=== PATIENT | female | born 2000 | race African-American/Black ===

== ENCOUNTER 2020-05-03 00:19 | Inpatient (IN) ==
[2020-05-03] MEDS ORDERED: ONDANSETRON 4 MG/2 ML VIAL IV PRN ×2 (00:30→20:33)
[2020-05-03] MEDS ORDERED: LACTATED RINGERS 1,000 ML IV ONE (00:30)
[2020-05-03 00:59] LABS: Basophils % 0.1 % (0.0-0.8); Eosinophils # 0.2 10*3/uL (0.0-0.87); Eosinophils % 1.4 % (0.00-10.9); Hematocrit 34.4 VOL% (35.7-47.0); Hemoglobin 11.8 GM/DL (12.0-16.0); Immature Granulocytes % 0.8 %; Immature Granulocytes Absolute 0.11 #; Lymphocytes # 2.6 10*3/uL (1.4-4.0); Lymphocytes % 19.3 % (21.3-54.2); Mean Corpuscular HGB Conc 34.3 GM/DL (32-36); Mean Corpuscular Volume 90.5 FL (87-102); Mean Platelet Volume 11.6 FL (9.6-12.0); Monocytes % 8.6 % (1.7-12.7); Neutrophils % 69.8 % (38.7-73.9); Platelet Count 255 T/CUMM (130-400); Red Cell Distribution Width 12.5 % (9.3-17.3); White Blood Count 13.3 T/CUMM (4-12)
[2020-05-03 01:31] LABS: Albumin 3.2 G/DL (3.4-5.0); Bilirubin,Total 0.5 MG/DL (0.2-1.0); Calcium 9.1 MG/DL (8.5-10.1); Osmolality,Calculated 264.2 MOS/KG (273-304); Potassium 3.6 MMOL/L (3.5-5.1); Total Protein 7.9 G/DL (6.4-8.3)
[2020-05-03 02:27] LABS: Rubella Antibody IgG Result Reactive (NonReactive)
[2020-05-03 02:39] LABS: Hepatitis B Surface Ag Quant < 0.10 Index; Hepatitis B Surface Ag Result Non-Reactive (NonReactive)
[2020-05-03] MEDS: MEPERIDINE 50 MG/1 ML VIAL IV PRN ×2 (06:21→09:14)
[2020-05-03] MEDS ORDERED: ONDANSETRON 4 MG/2 ML VIAL IV ONE (06:52)
[2020-05-03] MEDS ORDERED: CITRIC ACID/SODIUM CITRATE 30 ML UDCUP PO ONE (06:52)
[2020-05-03] MEDS ORDERED: FAMOTIDINE 20 MG/2 ML VIAL IV ONE (06:52)
[2020-05-03] MEDS ORDERED: diphenhydrAMINE 50 MG/1 ML VIAL IV PRN ×2 (06:52)
[2020-05-03] MEDS ORDERED: ePHEDrine 50 MG/ML VIAL IV PRN (06:52)
[2020-05-03] MEDS ORDERED: hydrOXYzine HCL 25 MG/1 ML VIAL IM PRN (06:52)
[2020-05-03] MEDS ORDERED: NALOXONE 0.4 MG/ML VIAL IV PRN (06:52)
[2020-05-03] MEDS ORDERED: PROMETHAZINE 25 MG/1 ML VIAL IM ONE (06:52)
[2020-05-03] MEDS ORDERED: fentaNYL 2 MCG/ROPIV 0.2% EPID 100 ML EPIDURAL SCH (07:00)
[2020-05-03] MEDS ORDERED: OXYTOCIN/LR 20 UNIT/1,000 ML BAG IV SCH (10:00)
[2020-05-03] MEDS: LACTATED RINGERS 1,000 ML IV SCH ×2 (10:44→10:45)
[2020-05-03 13:30] LABS: Amorphous Crystals,Urine Occasional /HPF (Few); Bacteria,Urine Occasional /HPF (Few); Bilirubin,Urine Negative (Negative); Blood, Urine Small mg/dL (Negative); Glucose,Urine (UA) Negative (Negative); Ketones,Urine 80 mg/dL (Negative); Mucus,Urine Few /LPF (Occasional); Nitrite,Urine Negative (Negative); Protein,Urine Negative; RBC,Urine 30 /HPF (0-4); Squamous Epithelial Cell,Urine Occasional /HPF (0-10); Urine Appearance CLEAR (Clear); Urine Color Yellow (Yellow); Urine Specific Gravity 1.016 (1.001-1.035); WBC,Urine 2 /HPF (0-6)
[2020-05-03] MEDS ORDERED: OXYTOCIN 10 UNIT/ML VIAL IM ONE (19:35)
[2020-05-03] MEDS ORDERED: OXYTOCIN 10 UNIT/ML VIAL ONE (19:35)
[2020-05-03] MEDS ORDERED: OXYTOCIN/LR 30 UNIT/1,000 ML BAG IV ONE (19:38)
[2020-05-03] MEDS ORDERED: miSOPROStoL 200 MCG TABLET ONE (19:47)
[2020-05-03] MEDS ORDERED: TRANEXAMIC ACID 1,000 MG/10 ML VIAL ONE (19:48)
[2020-05-03] MEDS ORDERED: CARBOPROST TROMETHAMINE 250 MCG/ML AMP IM ONE (19:48)
[2020-05-03] MEDS ORDERED: METHYLERGONOVINE 0.2 MG/1 ML AMP ONE (19:48)
[2020-05-03] MEDS ORDERED: OXYTOCIN/LR 20 UNIT/1,000 ML BAG IV ONE ×2 (19:48→20:33)
[2020-05-03] MEDS ORDERED: ceFAZolin 2,000 MG in PREMIX 1 EACH IV ONE (20:00)
[2020-05-03] MEDS ORDERED: MAGNESIUM HYDROXIDE SUSP 30 ML UDCUP PO PRN (20:33)
[2020-05-03] MEDS ORDERED: ACETAMINOPHEN 325 MG TABLET PO PRN (20:33)
[2020-05-03] MEDS ORDERED: SIMETHICONE CHEW 80 MG TABLET PO PRN (20:33)
[2020-05-03] MEDS ORDERED: RHO(D) IMMUNE GLOBULIN 300 MCG SYRINGE IM ONE (20:33)
[2020-05-03 20:39] LABS: Cord Venous Blood HCO3 20.3 MMOL/L; Cord Venous Blood PCO2 44.4 MMHG; Cord Venous Blood PO2 19.2
[2020-05-03 20:43] LABS: Cord Arterial Blood HCO3 20.4 MMOL/L
[2020-05-03 20:44] LABS: Bilirubin,Urine Negative (Negative); Blood, Urine Large mg/dL (Negative); Glucose,Urine (UA) Negative (Negative); Ketones,Urine 80 mg/dL (Negative); Mucus,Urine Moderate /LPF (Occasional); Nitrite,Urine Negative (Negative); Protein,Urine >=500 MG/DL; RBC,Urine 3627 /HPF (0-4); Squamous Epithelial Cell,Urine Occasional /HPF (0-10); Urine Appearance Slightly Hazy (Clear); Urine Color Red (Yellow); Urine Specific Gravity 1.012 (1.001-1.035); Urine Urobilinogen < 2.0 EU/DL (0.2-1.0); WBC,Urine 88 /HPF (0-6)
[2020-05-03] MEDS ORDERED: LACTATED RINGERS 1,000 ML IV SCH (21:00)
[2020-05-04] MEDS: IBUPROFEN 800 MG TABLET PO PRN ×2 (00:16→20:14)
[2020-05-04] MEDS: KETOROLAC 30 MG/1 ML VIAL IV SCH ×4 (05:14→22:37)
[2020-05-04] MEDS: ACETAMINOPHEN 500 MG TABLET PO SCH ×4 (05:14→22:38)
[2020-05-04 06:12] LABS: Basophils # 0.1 10*3/uL (0.0-0.2); Basophils % 0.2 % (0.0-0.8); Hematocrit 28.2 VOL% (35.7-47.0); Hemoglobin 9.3 GM/DL (12.0-16.0); Immature Granulocytes % 0.7 %; Immature Granulocytes Absolute 0.19 #; Lymphocytes # 0.8 10*3/uL (1.4-4.0); Lymphocytes % 2.8 % (21.3-54.2); Mean Corpuscular Volume 93.7 FL (87-102); Mean Platelet Volume 11.4 FL (9.6-12.0); Monocytes % 4.8 % (1.7-12.7); Neutrophils % 91.5 % (38.7-73.9); Platelet Count 198 T/CUMM (130-400); Red Blood Count 3.01 MC/CUMM (3.8-5.5); Red Cell Distribution Width 12.6 % (9.3-17.3); White Blood Count 27.6 T/CUMM (4-12)
[2020-05-04 06:54] LABS: Band Neutrophils 4 % (0-10); Lymphocytes 3 % (20-55); Segmented Neutrophils 88 % (50-85); Total Cells Counted 100
[2020-05-04 06:55] LABS: Hypochromasia 1+; Microcytosis 1+; Platelet Estimate Adequate
[2020-05-04] MEDS: DOCUSATE SODIUM 100 MG CAPSULE PO SCH ×3 (09:43→20:14)
[2020-05-04] MEDS: MULTIVITAMIN (PRENATAL) TABLET PO SCH (09:43)
[2020-05-04] MEDS: METOCLOPRAMIDE 10 MG TABLET PO SCH ×2 (13:20→20:14)
[2020-05-05] MEDS: METOCLOPRAMIDE 10 MG TABLET PO SCH ×2 (05:00→13:46)
[2020-05-05 08:45] VITALS: BP 134/78
[2020-05-05] MEDS: MULTIVITAMIN (PRENATAL) TABLET PO SCH (10:05)
[2020-05-05] MEDS: DOCUSATE SODIUM 100 MG CAPSULE PO SCH (10:05)
== END 2020-05-05 12:35 | disposition home or self-care (01) | DRG 788 ==
LOC: N.LD 00:19 → N.OB 05-04
PROVIDERS: ADMIT Obstetrics & Gynecology; ATTEND Obstetrics & Gynecology
PROC: LDCSECT (ICD-10-PCS; 2020-05-03 19:30)